=== PATIENT | male | born 1960 | race Caucasian/White ===

== ENCOUNTER 2018-03-10 08:20 | Day surgery (SDC) | payer BC ==
[~2018-03-10 08:20] MED LIST: Acetaminophen TAB* 325 MG PO PRN; Buffered Lidocaine 0.9% SYRIN* 5 ML/SYR SYRINGE INTRADERM ONE
[2018-03-10] MEDS ORDERED: Lidocaine 2% EPI 1:200000 MPF*10-20 ML VIAL ONE (09:28)
[2018-03-10] MEDS ORDERED: Povidone Iodine 5% OPTH* 30 ML BTL ONE (09:28)
[2018-03-10] MEDS ORDERED: Neomycin/Polymy/Dex OPTH.SUSP* MAXITROL 0.1% 5 ML ONE (09:28)
[2018-03-10] MEDS ORDERED: Ketorolac 0.5% OPHTH (NF) 0.5 % 5 ML BTL ONE (09:28)
[2018-03-10] MEDS ORDERED: Cyclopentolate 1% OPTH.SOL* 2 ML BTL ONE (09:28)
[2018-03-10] MEDS ORDERED: Proparacaine 0.5% OPHTH.SOL* 15 ML BTL ONE (09:28)
[2018-03-10] MEDS ORDERED: Phenylephrine 2.5% OPTH.SOL* 2 ML BTL ONE (09:28)
[2018-03-10] MEDS ORDERED: Lidocaine 1% MPF* 2 ML VIAL ONE (09:28)
[2018-03-10] MEDS ORDERED: acetaZOLAMIDE TAB* 250 MG ONE (09:28)
[2018-03-10] MEDS ORDERED: Midazolam* 1 MG/ML 2 ML VIAL (2 MG) ONE ×2 (10:20→11:02)
[2018-03-10 11:32] VITALS: BP 138/96
--- NOTE | 2018-03-10 14:05 | OP ---
DATE OF OPERATION: 03/10/18 - [facility] DATE OF : 56 SURGEON: Kwabena Means M.D. PREOPERATIVE DIAGNOSIS: Cataract, right eye. POSTOPERATIVE DIAGNOSIS: Cataract, right eye. OPERATIVE PROCEDURE: Extracapsular cataract extraction with intraocular lens implant, right eye. DESCRIPTION OF PROCEDURE: The patient was brought to the operating room after being given 1/2% Alcaine with epinephrine drops in the preoperative area. The eye was prepped and draped in the usual sterile fashion. Sterile drape and eyelid speculum were placed. Again, topical 1/2% Alcaine with epinephrine was given. A paracentesis incision was made at the 9 o'clock position with the No.75 blade. Clear cornea incision 2.2 x 2.2-mm was created at the 12 o'clock position starting at the anterior limbus using the 2.2-mm keratome. The anterior chamber was irrigated with 0.4 mL of 1% non-preservative intracameral lidocaine and filled with DisCoVisc. A capsulorrhexis was completed using the cystotome and the Utrata forceps. Hydrodissection was performed with balanced salt solution. The lens nucleus was removed with the Phacoemulsification handpiece without incident. Cortex was removed with the irrigation-aspiration handpiece. The capsular bag was re-inflated using DisCoVisc and an [id number] 21 implant was inserted with the shooter. The irrigation-aspiration handpiece was used to remove all residual DisCoVisc. The eye was refilled with balanced salt solution and the wound checked and found to be watertight. Topical Maxitrol drops were given. [id number]/[facility] #: [id number] [facility]
== END 2018-03-10 11:28 | disposition home or self-care (01) ==
LOC: OREAST 08:20
PROVIDERS: ATTEND Specialist
DX: H25.811 Combined forms of age-related cataract, right eye (principal); H40.053 Ocular hypertension, bilateral; E11.9 Type 2 diabetes mellitus without complications; Z79.4 Long term (current) use of insulin; Z79.84 Long term (current) use of oral hypoglycemic drugs; I10 Essential (primary) hypertension; K21.9 Gastro-esophageal reflux disease without esophagitis; F17.210 Nicotine dependence, cigarettes, uncomplicated
CPT/HCPCS: A9270-GY; J2250; V2632

== ENCOUNTER 2018-03-17 08:20 | Day surgery (SDC) | payer BC ==
[~2018-03-17 08:20] MED LIST changes: +Cyclopentolate 1% OPTH.SOL* 2 ML BTL ONE; +Ketorolac 0.5% OPHTH (NF) 0.5 % 5 ML BTL ONE; +Lidocaine 1% MPF* 2 ML VIAL ONE; +Lidocaine 2% EPI 1:200000 MPF*10-20 ML VIAL ONE; +Neomycin/Polymy/Dex OPTH.SUSP* MAXITROL 0.1% 5 ML ONE; +Phenylephrine 2.5% OPTH.SOL* 2 ML BTL ONE; +Povidone Iodine 5% OPTH* 30 ML BTL ONE; +Proparacaine 0.5% OPHTH.SOL* 15 ML BTL ONE; +acetaZOLAMIDE TAB* 250 MG ONE
[2018-03-17] MEDS ORDERED: fentaNYL* 50 MCG/ML 2 ML VIAL (100 MCG VIAL) ONE (09:52)
[2018-03-17] MEDS ORDERED: Midazolam* 1 MG/ML 2 ML VIAL (2 MG) ONE ×2 (09:53→10:23)
[2018-03-17] MEDS ORDERED: Propofol* 10 MG/ML 20 ML BTL IV PUSH ONE (10:37)
[2018-03-17 11:13] VITALS: BP 135/82
--- NOTE | 2018-03-17 13:07 | OP ---
OPERATIVE NOTE: DATE OF OPERATION: 03/17/18 DATE OF : 56 SURGEON: Kwabena Means MD PREOPERATIVE DIAGNOSIS: Cataract, left eye. POSTOPERATIVE DIAGNOSIS: Cataract, left eye. OPERATIVE PROCEDURE: Extracapsular cataract extraction with intraocular lens implant, left eye. PROCEDURE: The patient was brought to the operating room after being given 1/2% Alcaine with epineph rine drops in the preoperative area. The eye was prepped and draped in the usual sterile fashion. S terile drape and eyelid speculum were placed. Again, topical 1/2% Alcaine with epinephrine was given . A paracentesis incision was made at the 3 o'clock position with the No.75 blade. Clear cornea inc ision 2.2 x 2.2-mm was created at the 6 o'clock position starting at the anterior limbus using the 2. 2-mm keratome. The anterior chamber was irrigated with 0.4 mL of 1% non-preservative intracameral li docaine and filled with DisCoVisc. A capsulorrhexis was completed using the cystotome and the Utrata forceps. Hydrodissection was performed with balanced salt solution. The lens nucleus was removed wi th the Phacoemulsification handpiece without incident. Cortex was removed with the irrigation-aspira tion handpiece. The capsular bag was re-inflated using DisCoVisc and an SN60WF 21.5 implant was inse rted with the shooter. The irrigation-aspiration handpiece was used to remove all residual DisCoVisc . The eye was refilled with balanced salt solution and the wound checked and found to be watertight. Topical Maxitrol drops were given. [id number]/[facility] #: [id number]
== END 2018-03-17 11:03 | disposition home or self-care (01) ==
LOC: OREAST 08:20
PROVIDERS: ATTEND Specialist
DX: H25.812 Combined forms of age-related cataract, left eye (principal); H40.053 Ocular hypertension, bilateral; Z79.84 Long term (current) use of oral hypoglycemic drugs; F17.210 Nicotine dependence, cigarettes, uncomplicated; I10 Essential (primary) hypertension; Z79.4 Long term (current) use of insulin; E11.65 Type 2 diabetes mellitus with hyperglycemia
CPT/HCPCS: A9270-GY; J2250; J2704; J3010; V2632